=== PATIENT | male | born 1965 | race African-American/Black ===

== ENCOUNTER 2017-07-02 09:00 | Inpatient (IN) | payer BC, OTHER ==
[2017-07-02 10:11] VITALS: BMI 35.0
--- NOTE | 2017-07-02 13:33 | HP ---
Admission [facility] - [facility] Chief Complaint: I AM HERE FOR REHAB FROM ALCOHOL Allergies/Adverse Reactions: Allergies Allergy/AdvReac Type Severity Reaction Status Date / Time No Known Allergies Allergy Verified 07/02/17 10:38 History of Present Illness: THIS 52 YEARS OLD MALE WITH ALCOHOL DEPENDENCE,SEEKING REHAB,NEVER BEEN IN TREATMENT BEFORE HYPERTENSION S/P LAP GASTRIC BY PASS IN 09/16/2015 [facility] S/P LAP CHOLECYSTECTOMY IN 10/28 S/P LIPOSUCTION 2015 MULTIPLE SURGERY OF LEFT EYE,LEFT EYE PROSTHESIS IN 2014 S/P RIGHT KNEE REPLACEMENT IN 2003 S/P LEFT KNEE REPLACEMENT IN 2016 NEVER BEEN IN TREATMENT BEFORE Exam Limitations: No Limitations - Ebola screening Have you been sick,other than usual withdrawal symptoms: No - Review of Systems Constitutional: No Symptoms Reported (S/P LEFT EYE PROSTHESIS 2014) EENT: reports: Other (S/P LEFT EYE PROSTHESIS IN 2014) Respiratory: reports: No Symptoms reported Cardiac: reports: No Symptoms Reported GI: reports: Other (S/P LAP GASTRIC BY PASS) : reports: No Symptoms Reported Musculoskeletal: reports: No Symptoms Reported, Other (S/P RIGHT KNEE REPLACEMENT S/P LEFT KNEE REPLACEMENT) Integumentary: reports: No Symptoms Reported Neuro: reports: No Symptoms reported Endocrine: reports: No Symptoms Reported Hematology: reports: No Symptoms Reported Psychiatric: reports: Depressed Patient History - Patient Medical History Hx Anemia: No Hx Asthma: No Hx Chronic Obstructive Pulmonary Disease (COPD): No Hx Cancer: No Hx Cardiac Disorders: No Hx Congestive Heart Failure: No Hx Hypertension: Yes (ON MED) Hx Hypercholesterolemia: No Hx Pacemaker: No HX Cerebrovascular Accident: No Hx Seizures: No Hx Dementia: No Hx Diabetes: No Hx Gastrointestinal Disorders: Yes (S/P LAP GASTRIC BY PASS,S/P LAP COLECYSTECTOMY) Hx Liver Disease: No Hx Genitourinary Disorders: No Hx Sexually Transmitted Disorders: No Hx Renal Disease (ESRD): No Hx Thyroid Disease: No Hx Human Immunodeficiency Virus (HIV): No (LAST 1986 NEGATIVE) Hx Hepatitis C: No Hx Depression: Yes (NO MED) Hx Suicide Attempt: No Hx Bipolar Disorder: No Hx Schizophrenia: No Other Medical History: NO SUICIDAL,NO HOMICIDAL,S/P LEFT EYE PROTHESIS,S/P BILAT KNEE REPLACEMENT - Patient Surgical History Past Surgical History: Yes Hx Neurologic Surgery: No Hx Cataract Extraction: No Hx Cardiac Surgery: No Hx Lung Surgery: No Hx Breast Surgery: No Hx Breast Biopsy: No Hx Abdominal Surgery: Yes (gstric bypass in 09/16/2005) Hx Appendectomy: No Hx Cholecystectomy: No Hx Genitourinary Surgery: No Hx Section: No Hx Orthopedic Surgery: Yes (bilateral knee replacement) Other Surgical History: carpal tunnel, right hand in 2014 Anesthesia Reaction: No - PPD History Previous Implant?: Yes Documented Results: Negative w/o proof Implanted On Prior [facility] Admission?: No PPD to be Administered?: Yes - Smoking Cessation Smoking history: Never smoked Have you smoked in the past 12 months: No Hx Chewing Tobacco Use: No Initiated information on smoking cessation: No - Substance & Tx. History Hx Alcohol Use: Yes Hx Substance Use: No Substance Use Type: Alcohol Hx Substance Use Treatment: No - Substances Abused Alcohol-vodka Route: Oral Frequency: 3-6 times per week Amount used: 1 pt. Age of first use: 20 Date of Last Use: 06/29/17 Family Disease History - Family Disease History Family Disease History: Other: Father (ALCOHOL,), Mother (ALCOHOL, ) Admission Physical Exam S - Vital Signs Vital Signs: Vital Signs - 24 hr 07/02/17 10:08 Temperature 97.3 F L Pulse Rate 58 L Respiratory 20 Rate Blood Pressure 158/99 - Physical General Appearance: Yes: Within Normal Limits HEENTM: Yes: Normal ENT Inspection, Pharynx Normal, Other (S/P LEFT EYE PROSTHESIS) Respiratory: Yes: Lungs Clear, Normal Breath Sounds, No Respiratory Distress Neck: Yes: Within Normal Limits Breast: Yes: Within Normal Limits Cardiology: Yes: Within Normal Limits, Regular Rhythm, Regular Rate, S1, S2 Abdominal: Yes: Within Normal Limits, Normal Bowel Sounds, Non Tender, Flat, Soft, Surgical Scar Genitourinary: Yes: Within Normal Limits Back: Yes: Normal Inspection, Muscle Spasm Musculoskeletal: Yes: Back pain, Muscle Pain Extremities: Yes: Within Normal Limits, Other (SURGICAL SCAR IN BOTH KNEES S/P BILATERAL KNEE REPLACEMENT) Neurological: Yes: evp and chief operating officer II-XII NML intact, Alert, Motor Strength 5/5 Integumentary: Yes: Dry Lymphatic: Yes: Within Normal Limits - Diagnostic (1) Alcohol dependence Current Visit: Yes Status: Acute (2) Essential hypertension Current Visit: Yes Status: Acute (3) S/P gastric bypass Current Visit: Yes Status: Acute (4) Status post laparoscopic cholecystectomy Current Visit: Yes Status: Acute (5) Depression Current Visit: Yes Status: Acute (6) History of eye prosthesis Current Visit: Yes Status: Acute Cleared for Admission [facility] - Detox or Rehab Claeared for Rehab Admission: Yes [facility] Breath Alcohol Content Breath Alcohol Content: 0 Urine Drug Screen - Results Drug Screen Negative: No Urine Drug Screen Results: OXY-Oxycodone Inpatient Rehab Admission - Initial Determination Are CD services needed?: Yes Free of communicable disease: Yes Not in need of hospitalization: Yes - Rehab Admission Criteria Comorbidities: Yes Patient is meeting Inpatient Rehab admission criteria:: Yes
[2017-07-02] MEDS ORDERED: MAGNESIUM HYDROX 2400MG/30ML ORAL SUSPENSION 30 ML CUP PO PRN (13:54)
[2017-07-02] MEDS ORDERED: MAG HYDROX/AL HYDROX/SIMETH 30 ML UNIT-DOSE CUP PO PRN (13:54)
[2017-07-02] MEDS ORDERED: LOPERAMIDE HCL 2 MG CAPSULE PO PRN (13:54)
[2017-07-02] MEDS ORDERED: MAGNESIUM CITRATE 300 ML BOTTLE PO PRN (13:54)
[2017-07-02] MEDS ORDERED: MENTHOL/PHENOL 1 EACH UD MM PRN (13:54)
[2017-07-02] MEDS ORDERED: IBUPROFEN 400 MG TABLET (FP) PO PRN (13:54)
[2017-07-02] MEDS ORDERED: hydrOXYzine PAMOATE 50 MG CAPSULE (FP) PO PRN (13:54)
[2017-07-02] MEDS ORDERED: P-EPHED 60MG/TRIPROLIDI 2.5MG TABLET PO PRN (13:54)
[2017-07-02] MEDS ORDERED: guaiFENesin/D-METHORPHAN HB 10 ML UNIT-DOSE CUPS PO PRN (13:54)
[2017-07-02] MEDS ORDERED: TUBERCULIN PPD 5 TU/0.1ML VIAL ID ONE (15:27)
[2017-07-02 17:12] LABS: MCH 21.8 pg (25.7-33.7); MCHC 31.3 g/dl (32.0-35.9); MEAN CELL VOLUME 69.8 fl (80-96); MEAN PLT VOLUME 7.9 fl (7.5-11.1); PLATELET COUNT 243 K/MM3 (134-434); RDW 17.2 % (11.9-15.9); WHITE BLOOD COUNT 3.5 K/mm3 (4.0-10.0)
[2017-07-02 17:14] LABS: URINE APPEARANCE CLEAR; URINE BILIRUBIN NEGATIVE (NEGATIVE); URINE BLOOD NEGATIVE (NEGATIVE); URINE COLOR DKYELLOW; URINE GLUCOSE (UA) NEGATIVE (NEGATIVE); URINE KETONE NEGATIVE (NEGATIVE); URINE LEUK ESTERASE NEGATIVE (NEGATIVE); URINE NITRITE NEGATIVE (NEGATIVE); URINE PROTEIN NEGATIVE (NEGATIVE); URINE UROBILINOGEN NEGATIVE mg/dL (0.2-1.0)
[2017-07-02 17:28] LABS: ALBUMIN 4.1 g/dl (3.4-5.0); ALK PHOS 139 U/L (45-117); ANION GAP 6 (8-16); BILIRUBIN,TOTAL 0.7 mg/dL (0.2-1.0); CALCIUM 9.2 mg/dL (8.5-10.1); CO2 29 mmol/L (21-32); CREATININE 1.2 mg/dL (0.7-1.3); GLUCOSE,RANDOM 94 mg/dL (74-106); SGOT/AST 43 U/L (15-37); SGPT/ALT 36 U/L (12-78)
[2017-07-02 18:33] LABS: HYPOCHROMIA 2+; MICROCYTOSIS 1+; OVALOCYTE 2+; PLATELET ESTIMATE ADEQUATE (NORMAL)
[2017-07-02] MEDS: THIAMINE HCL 100 MG TABLET (FP) PO SCH (21:32)
[2017-07-03] MEDS: FERROUS SO4 325 MG TABLET (FP) PO SCH (09:46)
[2017-07-03] MEDS: PRENATAL VITAMINS W/ FOLIC ACID TABLET (FP) PO SCH (09:46)
[2017-07-03] MEDS: ATENOLOL 50 MG TABLET (FP) PO SCH (09:46)
[2017-07-03] MEDS: CYANOCOBALAMIN 1,000 MCG TABLET (FP) PO SCH (09:46)
--- NOTE | 2017-07-03 10:39 | HP ---
Psychiatrist Admission - Data Date of interview: 07/03/17 Admission source: [facility]/Probation Identifying data: This is the first [facility] admission for this 52 years old Black male, father of 2 children, unemployed on SSD, domiciled Medical History: Significant for HTN and history of surgery for gastric bypass, bilatel knee replacement, removal of galdbladdrer and left eye prosthesis( cornea transplant). Psychiatric History: Denies history of previous psychiatric treatment Physical/Sexual Abuse/Trauma History: Denies history of verbal, physical or sexual abuse as well as DV relationship Additional Comment: Reports history of 2 previous arrests including one felony conviction. Reports being on probation till 2021 Vital Signs: Vital Signs - 24 hr 07/02/17 07/03/17 07/03/17 15:50 00:30 03:30 Temperature 98.2 F Pulse Rate 66 Respiratory 20 18 18 Rate Blood Pressure 130/84 07/03/17 07/03/17 06:55 10:00 Temperature 97.8 F Pulse Rate 66 81 Respiratory 18 18 Rate Blood Pressure 138/89 130/86 Allergies/Adverse Reactions: Allergies Allergy/AdvReac Type Severity Reaction Status Date / Time No Known Allergies Allergy Verified 07/02/17 10:38 Date of last physical exam: 07/02/17 - Substance Abuse/Tx History Hx Alcohol Use: Yes Substance Use Type: None, Alcohol, Cocaine, Heroin, Marijuana, Opiates, Prescribed, Tranquilizers Hx Substance Use Treatment: Yes ([facility] substance abuse outpatient) Mental Status Exam - Mental Status Exam Alert and Oriented to: Time, Place, Person Cognitive Function: Fair Patient Appearance: Well Groomed Mood: Depressed Affect: Appropriate Patient Behavior: Cooperative Speech Pattern: Clear Voice Loudness: Normal Thought Process: Intact, Goal Oriented Thought Disorder: Not Present Hallucinations: Denies Suicidal Ideation: Denies Homicidal Ideation: Denies Insight/Judgement: Fair Sleep: Poorly Appetite: Fair Muscle strength/Tone: Normal Gait/Station: Normal Psychiatric Findings - Problem List ([place] 1, 2,3) (1) Alcohol dependence Current Visit: Yes Status: Acute (2) Alcohol-induced mood disorder Current Visit: Yes Status: Acute (3) Alcohol-induced sleep disorder Current Visit: Yes Status: Acute (4) Essential hypertension Current Visit: Yes Status: Acute (5) History of eye prosthesis Current Visit: Yes Status: Acute (6) S/P gastric bypass Current Visit: Yes Status: Acute (7) Status post laparoscopic cholecystectomy Current Visit: Yes Status: Acute - Initial Treatment Plan Initial Treatment Plan: 1) Start Belsomra 10 mg po HS prn for insomnia. 2) Monitor progress
--- NOTE | 2017-07-03 15:58 | EKG ---
Test Reason : Blood Pressure : / mmHG Vent. Rate : 079 BPM Atrial Rate : 079 BPM P-R Int : 186 ms QRS Dur : 092 ms QT Int : 378 ms P-R-T Axes : 038 029 000 degrees QTc Int : 433 ms NORMAL SINUS RHYTHM NORMAL ECG NO PREVIOUS ECGS AVAILABLE Confirmed by KOYR PRADHAN MD ([id number]) on 07/03/2017 3:58:30 PM Referred By: Confirmed By:KORY PRADHAN MD
[2017-07-03] MEDS: THIAMINE HCL 100 MG TABLET (FP) PO SCH (21:03)
[2017-07-03] MEDS: diphenhydrAMINE HCL 50 MG CAPSULE PO PRN (21:04)
[2017-07-04] MEDS: ACETAMINOPHEN 325 MG TABLET (FP) PO PRN (05:34)
[2017-07-04] MEDS: FERROUS SO4 325 MG TABLET (FP) PO SCH (09:47)
[2017-07-04] MEDS: PRENATAL VITAMINS W/ FOLIC ACID TABLET (FP) PO SCH (09:47)
[2017-07-04] MEDS: CYANOCOBALAMIN 1,000 MCG TABLET (FP) PO SCH (09:47)
[2017-07-04] MEDS: ATENOLOL 50 MG TABLET (FP) PO SCH (09:47)
[2017-07-04] MEDS: LORATADINE 10 MG TABLET PO SCH (19:15)
[2017-07-04] MEDS: THIAMINE HCL 100 MG TABLET (FP) PO SCH (21:42)
[2017-07-04] MEDS: diphenhydrAMINE HCL 50 MG CAPSULE PO PRN (21:42)
[2017-07-05] MEDS: LORATADINE 10 MG TABLET PO SCH (09:30)
[2017-07-05] MEDS: FERROUS SO4 325 MG TABLET (FP) PO SCH (09:30)
[2017-07-05] MEDS: PRENATAL VITAMINS W/ FOLIC ACID TABLET (FP) PO SCH (09:30)
[2017-07-05] MEDS: ATENOLOL 50 MG TABLET (FP) PO SCH (09:30)
[2017-07-05] MEDS: CYANOCOBALAMIN 1,000 MCG TABLET (FP) PO SCH (09:30)
[2017-07-05] MEDS: ZYRTEC PO SCH (14:58)
[2017-07-05] MEDS: diphenhydrAMINE HCL 50 MG CAPSULE PO PRN (21:11)
[2017-07-05] MEDS: THIAMINE HCL 100 MG TABLET (FP) PO SCH (21:11)
[2017-07-06] MEDS: FERROUS SO4 325 MG TABLET (FP) PO SCH (09:45)
[2017-07-06] MEDS: CYANOCOBALAMIN 1,000 MCG TABLET (FP) PO SCH (09:45)
[2017-07-06] MEDS: ATENOLOL 50 MG TABLET (FP) PO SCH (09:45)
[2017-07-06] MEDS: ZYRTEC PO SCH (09:45)
[2017-07-06] MEDS: PRENATAL VITAMINS W/ FOLIC ACID TABLET (FP) PO SCH (09:46)
[2017-07-06] MEDS: diphenhydrAMINE HCL 50 MG CAPSULE PO PRN (21:17)
[2017-07-06] MEDS: THIAMINE HCL 100 MG TABLET (FP) PO SCH (21:17)
[2017-07-07] MEDS: ATENOLOL 50 MG TABLET (FP) PO SCH (06:26)
[2017-07-07] MEDS: FERROUS SO4 325 MG TABLET (FP) PO SCH (09:44)
[2017-07-07] MEDS: ZYRTEC PO SCH (09:44)
[2017-07-07] MEDS: PRENATAL VITAMINS W/ FOLIC ACID TABLET (FP) PO SCH (09:44)
[2017-07-07] MEDS: CYANOCOBALAMIN 1,000 MCG TABLET (FP) PO SCH (09:44)
[2017-07-07] MEDS: ACETAMINOPHEN 325 MG TABLET (FP) PO PRN (13:52)
[2017-07-07] MEDS: THIAMINE HCL 100 MG TABLET (FP) PO SCH (21:29)
[2017-07-07] MEDS: SUVOREXANT 10 MG TABLET PO PRN (21:30)
[2017-07-08] MEDS: ACETAMINOPHEN 325 MG TABLET (FP) PO PRN (05:07)
[2017-07-08] MEDS: ATENOLOL 50 MG TABLET (FP) PO SCH (05:49)
[2017-07-08] MEDS: CYANOCOBALAMIN 1,000 MCG TABLET (FP) PO SCH (09:39)
[2017-07-08] MEDS: PRENATAL VITAMINS W/ FOLIC ACID TABLET (FP) PO SCH (09:39)
[2017-07-08] MEDS: ZYRTEC PO SCH (09:39)
[2017-07-08] MEDS: FERROUS SO4 325 MG TABLET (FP) PO SCH (09:39)
[2017-07-08] MEDS: THIAMINE HCL 100 MG TABLET (FP) PO SCH (21:05)
[2017-07-08] MEDS: diphenhydrAMINE HCL 50 MG CAPSULE PO PRN (21:05)
[2017-07-09] MEDS: ATENOLOL 50 MG TABLET (FP) PO SCH (06:16)
[2017-07-09] MEDS: FERROUS SO4 325 MG TABLET (FP) PO SCH (10:10)
[2017-07-09] MEDS: CYANOCOBALAMIN 1,000 MCG TABLET (FP) PO SCH (10:10)
[2017-07-09] MEDS: PRENATAL VITAMINS W/ FOLIC ACID TABLET (FP) PO SCH (10:10)
[2017-07-09] MEDS: ZYRTEC PO SCH (10:11)
[2017-07-09] MEDS: THIAMINE HCL 100 MG TABLET (FP) PO SCH (21:26)
[2017-07-09] MEDS: SUVOREXANT 10 MG TABLET PO PRN (21:26)
[2017-07-09] MEDS: diphenhydrAMINE HCL 50 MG CAPSULE PO PRN (21:27)
[2017-07-10] MEDS: ATENOLOL 50 MG TABLET (FP) PO SCH (06:13)
[2017-07-10] MEDS: ZYRTEC PO SCH (09:45)
[2017-07-10] MEDS: PRENATAL VITAMINS W/ FOLIC ACID TABLET (FP) PO SCH (09:46)
[2017-07-10] MEDS: CYANOCOBALAMIN 1,000 MCG TABLET (FP) PO SCH (09:46)
[2017-07-10] MEDS: FERROUS SO4 325 MG TABLET (FP) PO SCH (09:46)
[2017-07-10] MEDS: diphenhydrAMINE HCL 50 MG CAPSULE PO PRN (21:17)
[2017-07-10] MEDS: THIAMINE HCL 100 MG TABLET (FP) PO SCH (21:17)
[2017-07-10] MEDS ORDERED: SUVOREXANT 10 MG TABLET PO PRN (22:00)
[2017-07-11] MEDS: ATENOLOL 50 MG TABLET (FP) PO SCH (06:13)
[2017-07-11 06:42] VITALS: BP 133/91; PULSE 66; TEMP 97
[2017-07-11] MEDS ORDERED: PT OWN MED DRAWER 7, Y5N ONE (08:47)
--- NOTE | 2017-07-11 09:04 | PN ---
Psychiatric Progress Note Vital Signs: Vital Signs Period Temp Pulse Resp BP Sys/Antunez Pulse Ox Last 24 Hr 97.0 F 66-77 18 133-133/83-91 Date of Session: 07/11/17 Chief Complaint:: Discharge Note HPI: Patient addressingAlcohol Dependence comorbid with Alcohol-induced Mood Disorder ROS: HTN, Anemia were medically managed Current Medications: Active Medications Generic Name Dose Route Start Last Admin Trade Name Freq PRN Reason Stop Dose Admin Acetaminophen 650 mg 07/02/17 13:54 07/08/17 05:07 Tylenol - PO 650 mg Q4H PRN Administration PAIN Al Hydroxide/Mg Hydroxide 30 ml 07/02/17 13:54 07/09/17 12:53 Mylanta Oral Suspension - PO 30 ml Q6H PRN Administration DYSPEPSIA Atenolol 50 mg 07/07/17 06:00 07/11/17 06:13 Tenormin - PO 50 mg DAILY@0600 LAILA Administration Cyanocobalamin 1,000 mcg 07/03/17 10:00 07/10/17 09:46 Vitamin B12 - PO 1,000 mcg DAILY LAILA Administration Diphenhydramine HCl 50 mg 07/02/17 13:54 07/10/17 21:17 Benadryl - PO 50 mg HSMR1 PRN Administration INSOMNIA Eucalyptus/Menthol/Phenol/Sorbitol 1 each 07/02/17 13:54 Cepastat Lozenge - MM Q4H PRN SORE THROAT Ferrous Sulfate 325 mg 07/03/17 10:00 07/10/17 09:46 Feosol - PO 325 mg DAILY LAILA Administration Guaifenesin 10 ml 07/02/17 13:54 Robitussin Dm - PO Q6H PRN COUGH Hydroxyzine Pamoate 50 mg 07/02/17 13:54 Vistaril - PO Q4H PRN AGITATION Ibuprofen 400 mg 07/02/17 13:54 Motrin - PO Q6H PRN SEVERE PAIN Loperamide HCl 4 mg 07/02/17 13:54 Imodium - PO Q6H PRN DIARRHEA Magnesium Citrate 300 ml 07/02/17 13:54 Citroma - PO Q48H PRN CONSTIPATION Magnesium Hydroxide 30 ml 07/02/17 13:54 Milk Of Magnesia - PO DAILY PRN CONSTIPATION Non-Formulary Medication 0 tab 07/05/17 13:30 07/10/17 09:45 Zyrtec PO 1 tab DAILY LAILA Administration Multivit/Folic Acid/Iron 1 tab 07/03/17 10:00 07/10/17 09:46 Vitamins (Sjr) - PO 1 tab DAILY LAILA Administration Thiamine HCl 100 mg 07/02/17 22:00 07/10/17 21:17 Vitamin B1 - PO 100 mg HS LAILA Administration Current Side Effect: No Lab tests ordered: Yes Lab tests reviewed: Yes Provider note:: Patient has completed this program today. He has met his treatment goals and will continue to address hi issues in outpatient treatment at [facility]. 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 He is stable for discharge today. Total face to face time:: 35 Mental Status Exam - Mental Status Exam Alert and Oriented to: Time, Place, Person Cognitive Function: Fair Patient Appearance: Well Groomed Mood: Hopeful, Euthymic Affect: Appropriate Patient Behavior: Cooperative Speech Pattern: Clear Voice Loudness: Normal Thought Process: Intact, Goal Oriented Thought Disorder: Not Present Hallucinations: Denies Suicidal Ideation: Denies Homicidal Ideation: Denies Insight/Judgement: Fair Sleep: Fair Appetite: Good Muscle strength/Tone: Normal Gait/Station: Normal Psychiatric Treatment Plan - Problem List (1) Alcohol dependence Current Visit: Yes (2) Alcohol-induced mood disorder Current Visit: Yes (3) Alcohol-induced sleep disorder Current Visit: Yes (4) Essential hypertension Current Visit: Yes (5) History of eye prosthesis Current Visit: Yes (6) S/P gastric bypass Current Visit: Yes (7) Status post laparoscopic cholecystectomy Current Visit: Yes Initial treatment plan: Patient is discharged today and referred to [facility] for outpatient treatment
== END 2017-07-11 09:10 | disposition home or self-care (01) | DRG 895 ==
LOC: YASAS 09:00 → Y3W 12:59
PROVIDERS: ADMIT Psychiatry & Neurology Psychiatry; ATTEND Psychiatry & Neurology Psychiatry
PROC: HZ42ZZZ Group Counseling for Substance Abuse Treatment, Cognitive-Behavioral (ICD-10-PCS; principal; 2017-07-02)
DX: F10.20 Alcohol dependence, uncomplicated (principal); F10.24 Alcohol dependence with alcohol-induced mood disorder; F10.282 Alcohol dependence with alcohol-induced sleep disorder; I10 Essential (primary) hypertension; Z98.84 Bariatric surgery status; Z90.49 Acquired absence of other specified parts of digestive tract; Z97.0 Presence of artificial eye; Z96.653 Presence of artificial knee joint, bilateral
CPT/HCPCS: 36415; 80053; 81003; 85027; 85660; 86593; 93005; 93010